=== PATIENT | female | born 1995 | race Caucasian/White ===

== ENCOUNTER → 2017-01-23 | Outpatient (CLI) | payer OTHER, MEDICAID ==
[~2017-01-23] MED LIST: ACET50TA PO; ANUS2.5C2 TOP; DOCU10CA PO; IBUP60TA PO; MOM30SS PO; PRENTAB54 PO; ZANTTAB PO
== END ==
LOC: M LAB 13:17
PROVIDERS: ATTEND Physician Assistant
DX: Z71.2 Person consulting for explanation of examination or test findings (principal)

== ENCOUNTER → 2017-10-08 | Outpatient (REF) | payer OTHER | LOC: M LAB REF 13:11 | DX: N39.0 Urinary tract infection, site not specified (principal) ==

== ENCOUNTER → 2017-11-17 | Outpatient (REF) | payer OTHER | LOC: M LAB REF 17:11 | DX: N39.0 Urinary tract infection, site not specified (principal) | CPT/HCPCS: 87086 ==

== ENCOUNTER → 2018-01-07 | Outpatient (REF) | payer OTHER | LOC: M LAB REF 17:03 | DX: R30.0 Dysuria (principal) ==

== ENCOUNTER → 2018-05-25 | Outpatient (CLI) | payer OTHER ==
[2018-05-25 18:31] LABS: BASO % 0.4 % (0.0-1.0); EOS # 0.2 10^3/uL (0.0-0.50); EOS % 2.5 % (0.0-3.0); HEMATOCRIT 40.6 % (36.0-47.0); HEMOGLOBIN 13.9 g/dl (12.0-15.5); IMMATURE GRANULOCYTE % 0.4 % (0-3.0); LYMPH # 3.4 10^3/uL (1.5-6.5); LYMPH % 38.2 % (24.0-44.0); MEAN CORPUSCULAR HEMOGLOBIN 30.7 pg (27.0-33.0); MEAN CORPUSCULAR HGB CONC 34.2 g/dl (32.0-36.5); MEAN CORPUSCULAR VOLUME 89.6 fl (80.0-96.0); MONO # 0.7 10^3/uL (0.0-0.8); MONO % 7.5 % (0.0-5.0); NEUTROPHILS # 4.5 10^3/uL (1.8-7.7); PLATELET COUNT, AUTOMATED 278 10^3/uL (150-450); RED BLOOD COUNT 4.53 10^6/uL (4.00-5.40); RED CELL DISTRIBUTION WIDTH 11.7 % (11.5-14.5); WHITE BLOOD COUNT 8.9 10^3/uL (4.0-10.0)
[2018-05-25 18:34] LABS: ALBUMIN 3.9 GM/DL (3.2-5.2); ALBUMIN/GLOBULIN RATIO 1.15 (1.00-1.93); ALKALINE PHOSPHATASE 72 U/L (45-117); ALT/SGPT 19 U/L (12-78); ANION GAP 7 MEQ/L (8-16); AST/SGOT 16 U/L (7-37); BILIRUBIN,TOTAL 0.4 MG/DL (0.2-1.0); BLOOD UREA NITROGEN 8 MG/DL (7-18); CALCIUM LEVEL 9.1 MG/DL (8.5-10.1); CARBON DIOXIDE LEVEL 28 MEQ/L (21-32); CHLORIDE LEVEL 104 MEQ/L (98-107); CREATININE FOR GFR 0.84 MG/DL (0.55-1.30); GLOMERULAR FILTRATION RATE > 60.0 (>60); GLUCOSE, FASTING 83 MG/DL (70-100); POTASSIUM SERUM 4.5 MEQ/L (3.5-5.1); SODIUM LEVEL 139 MEQ/L (136-145); TOTAL PROTEIN 7.3 GM/DL (6.4-8.2)
== END ==
LOC: M WUC 12:33
DX: F41.1 Generalized anxiety disorder (principal)
CPT/HCPCS: 84443

== ENCOUNTER → 2020-06-19 | Outpatient (CLI) | payer OTHER ==
[~2020-06-19] MED LIST changes: -ACET50TA PO; +IBUP600T42 PO; -IBUP60TA PO; +MAPA500T2 PO; +ZANT150T40 PO; -ZANTTAB PO
== END ==
LOC: M LABSMTC 14:10
PROVIDERS: ATTEND Family Medicine
DX: Z20.828 Contact with and (suspected) exposure to other viral communicable diseases (principal)

== ENCOUNTER → 2021-05-09 | Outpatient (REF) | payer OTHER, MEDICAID | LOC: M LAB REF 20:52 | PROVIDERS: ATTEND Physician Assistant | DX: J01.90 Acute sinusitis, unspecified (principal) ==

== ENCOUNTER → 2023-10-07 | Outpatient (CLI) | payer BC ==
[2023-10-07 16:07] LABS: BASO % 0.3 % (0.0-1.0); EOS # 0.1 10^3/uL (0.0-0.5); EOS % 0.9 % (0.0-3.0); HEMATOCRIT 39.3 % (36.0-47.0); HEMOGLOBIN 13.5 g/dl (12.0-15.5); LYMPH # 2.8 10^3/uL (1.5-5.0); LYMPH % 41.7 % (24.0-44.0); MEAN CORPUSCULAR HEMOGLOBIN 30.6 pg (27.0-33.0); MEAN CORPUSCULAR HGB CONC 34.4 g/dl (32.0-36.5); MEAN CORPUSCULAR VOLUME 89.1 fl (80.0-96.0); MONO # 0.4 10^3/uL (0.0-0.8); MONO % 5.9 % (2.0-8.0); NEUTROPHILS # 3.4 10^3/uL (1.5-8.5); NEUTROPHILS % 50.9 % (36.0-66.0); PLATELET COUNT, AUTOMATED 249 10^3/uL (150-450); RED BLOOD COUNT 4.41 10^6/uL (4.00-5.40); WHITE BLOOD COUNT 6.6 10^3/uL (4.0-10.0)
[2023-10-07 16:15] LABS: ERYTHROCYTE SEDIMENTATION RATE 5 mm/hr (0-20)
[2023-10-07 16:24] LABS: C REACTIVE PROTEIN QUANTITATIV < 0.40 MG/DL (<1.0); URIC ACID 4.2 MG/DL (3.1-7.8)
[2023-10-07 16:29] LABS: RHEUMATOID FACTOR QUANT 10.6 IU/ML (<14)
== END ==
LOC: M PLALAB 14:52
PROVIDERS: ATTEND Orthopaedic Surgery
DX: M25.561 Pain in right knee (principal)